=== PATIENT | male | born 1965 | race Caucasian/White ===

== ENCOUNTER 2019-05-21 12:55 | Emergency (ER) | payer SELFPAY ==
[~2019-05-21] VITALS: Ht 182.9 cm; Wt 75.0 kg
[2019-05-21 13:31] LABS: EOS # 0.3 (0.04-0.40); HEMATOCRIT 46.3 % (42.0-52.0); HEMOGLOBIN 15.2 g/dL (13.5-18.0); LYMPH# 1.6 (1.50-4.00); MEAN CELL VOLUME 98 fl (78-100); MEAN CORPUSCULAR HEMOGLOBIN 32 pg (27-31); MEAN CORPUSCULAR HGB CONC 33 g/dL (33-37); MEAN PLATELET VOLUME 9.4 fl (7.4-10.4); MONO # 0.6 (0.20-0.80); NEU # 3.9 (1.40-6.50); PLATELET COUNT 275 K/mm3 (130-400); RED BLOOD COUNT 4.74 M/mm3 (4.20-5.60); RED CELL DISTRIBUTION WIDTH 13.4 % (11.5-14.5); WHITE BLOOD COUNT 6.5 K/mm3 (4.8-10.8)
[2019-05-21 13:32] LABS: EOS % 5.2 % (0.0-4.0)
[2019-05-21 13:40] LABS: ALBUMIN 3.7 g/dL (3.5-5.0)
[2019-05-21 13:41] LABS: SODIUM 139 mmol/L (136-145)
[2019-05-21 13:43] LABS: GLUCOSE 190 mg/dL (75-110); TOTAL PROTEIN 7.5 g/dL (6.4-8.3)
[2019-05-21 13:44] LABS: CARBON DIOXIDE 23 mmol/L (22-29)
[2019-05-21 13:45] LABS: PROTHROMBIN TIME 10.3 SECONDS (9.0-12.0); TOTAL BILIRUBIN 0.5 mg/dL (0.2-1.2)
[2019-05-21 13:48] LABS: AST-SGOT 27 U/L (5-34)
[2019-05-21 13:49] LABS: ALT/SGPT 38 U/L (0-55)
[2019-05-21 13:58] LABS: TROPONIN-I < 0.03 ng/mL (<0.030)
[2019-05-21 14:49] VITALS: BP 98/62
== END 2019-05-21 14:53 | disposition home or self-care (01) ==
LOC: ED 12:55
PROVIDERS: Nurse Practitioner Primary Care
DX: R07.9 Chest pain, unspecified (principal)
CPT/HCPCS: J7030